=== PATIENT | female | born 1990 | race African-American/Black ===

== ENCOUNTER 2017-07-15 08:45 | Emergency (ER) | payer MEDICAID ==
[~2017-07-15] VITALS: Ht 175.3 cm; Wt 86.0 kg
[~2017-07-15 08:45] MED LIST: IBUP200C48
[2017-07-15] MEDS ORDERED: SODIUM CHLORIDE 0.9% 250 ML IV ONE (09:40)
[2017-07-15] MEDS ORDERED: FLUORESCEIN SODIUM 1MG/STRIP LEFTEYE ONE (09:45)
[2017-07-15] MEDS ORDERED: TETRACAINE 0.5% OPHTH DROPS 4ML LEFTEYE ONE (09:45)
[2017-07-15] MEDS ORDERED: IBUPROFEN 600MG TABLET PO ONE (09:45)
[2017-07-15 12:00] VITALS: BP 152/90
== END 2017-07-15 14:15 | disposition home or self-care (01) ==
LOC: ER 08:51
DX: T15.02XA Foreign body in cornea, left eye, initial encounter (principal); F12.10 Cannabis abuse, uncomplicated; F19.10 Other psychoactive substance abuse, uncomplicated; F17.200 Nicotine dependence, unspecified, uncomplicated
CPT/HCPCS: 96360; 99284; J7050; Z7610; J7030